=== PATIENT | male | born 1965 | race Caucasian/White ===

== ENCOUNTER 2018-08-16 17:16 | Emergency (ER) | payer OTHER ==
[~2018-08-16] VITALS: Ht 182.9 cm; Wt 90.7 kg
[~2018-08-16 17:16] MED LIST: AMLO5 PO; AMOCLA875 PO; EXFORGE; HYDACE5; HYDACE5 PO; IBUP800 PO; LOSARTAN-HCTZ1 EAC2 PO; LOSHYD100 PO; MORP30ER PO; NEURONTIN; NIFE60ER; Norvasc5 MG PO; RXCLIN PO; SERT100; SERT100 PO; TRAZ50 PO; ZOLOFT; ZYPREXA; Zoloft100 MG PO; [UNRECOGNIZED DRUG - OTHER]; [UNRECOGNIZED DRUG - REMARK]; [UNRECOGNIZED DRUG - REMARK]; [UNRECOGNIZED DRUG - REMARK]
[2018-08-16] MEDS ORDERED: Exforge 5-3201 EACH PO (17:35)
[2018-08-16] MEDS ORDERED: DOXA4 PO ×2 (17:35→18:09)
[2018-08-16] MEDS ORDERED: SERT100 PO ×2 (17:36→18:09)
[2018-08-16] MEDS ORDERED: AMLODIPINE-VAL1 EAC2 PO (18:09)
== END 2018-08-16 18:14 | disposition home or self-care (01) ==
LOC: ER 17:16
DX: Z76.0 Encounter for issue of repeat prescription (principal); Z79.899 Other long term (current) drug therapy; F17.200 Nicotine dependence, unspecified, uncomplicated; I10 Essential (primary) hypertension; F32.9 Major depressive disorder, single episode, unspecified
CPT/HCPCS: 99281